=== PATIENT | female | born 1985 | race Two or more races ===

== ENCOUNTER 2021-10-30 22:42 | Emergency (ER) | payer OTHER ==
[~2021-10-30] VITALS: Ht 157.5 cm; Wt 98.0 kg
[2021-10-30] MEDS ORDERED: LEVOTHYROXINE25 MCG (23:26)
[2021-10-30] MEDS ORDERED: PNV-DHA SOFTGE1 EACH (23:26)
[2021-10-31] MEDS ORDERED: MACROBID 100 M100 MG PO (04:17)
== END 2021-10-31 04:25 ==
LOC: ER 22:42
DX: O23.42 Unspecified infection of urinary tract in pregnancy, second trimester (principal); N39.0 Urinary tract infection, site not specified; Z3A.14 14 weeks gestation of pregnancy